=== PATIENT | male | born 1980 | race Caucasian/White ===

== ENCOUNTER 2016-12-08 19:33 | Emergency (ER) | payer BC ==
[2016-12-08 21:42] VITALS: BP 123/87
== END 2016-12-08 21:42 | disposition home or self-care (01) ==
LOC: ED 19:33
DX: S82.51XA Displaced fracture of medial malleolus of right tibia, initial encounter for closed fracture (principal); X50.1XXA Overexertion from prolonged static or awkward postures, initial encounter; Y93.54 Activity, bowling; Y92.89 Other specified places as the place of occurrence of the external cause; Y99.8 Other external cause status
CPT/HCPCS: J1885

== ENCOUNTER 2017-09-29 07:12 | Emergency (ER) | payer BC ==
[2017-09-29 10:08] LABS: BASOPHIL % 1.1 % (0-2); PLATELET COUNT 289 x10^3mcL (130-400); RED CELL DISTRIBUTION WIDTH 13.5 % (11.5-14.5)
[2017-09-29 10:19] LABS: CALCIUM 9.1 mg/dL (8.5-10.1); CARBON DIOXIDE 24.8 mmol/L (21-32); CHLORIDE SERUM 103 mmol/L (98-107); CREATININE SERUM 0.8 mg/dL (0.7-1.3); GFR1 > 60 mL/min; GLUCOSE SERUM 112 mg/dL (74-106); POTASSIUM SERUM 3.8 mmol/L (3.5-5.1); SODIUM SERUM 137 mmol/L (136-145); UA SPECIFIC GRAVITY 1.015 (1.005-1.035); microscopic required? YES; urine erythrocyte NEGATIVE (NEGATIVE)
[2017-09-29 10:23] LABS: ALKALINE PHOSPHATASE 64 U/L (46-116); ALT/SGPT 50 U/L (16-63); AMYLASE 53 U/L (25-115); AST/SGOT 29 U/L (15-37); LIPASE 90 IU/L (73-393)
[2017-09-29 10:25] LABS: TOTAL PROTEIN, SERUM 8.3 g/dL (6.4-8.2)
[2017-09-29 12:41] VITALS: BP 107/74
[2017-09-29 16:23] LABS: T3 TOTAL 1.06 ng/mL
[2017-09-29 16:27] LABS: MAGNESIUM 2.2 mg/dL (1.8-2.4); PHOSPHOROUS 3.5 mg/dL (2.5-4.9)
[2017-09-29 16:29] LABS: CHOLESTEROL/HDL RATIO 5.8
[2017-09-29 16:35] LABS: FREE T4 0.9 ng/dL (0.76-1.46); FREE THYROXINE INDEX 2.3 ug/dL (1.4-4.5); T4(THYROXINE) 7.8 ug/dL (4.7-13.3)
[2017-09-29 16:45] LABS: AMPHETAMINE QUAL UR NONE DETECTED (NEG <=1000)
== END 2017-09-29 12:41 | disposition home or self-care (01) ==
LOC: ED 07:12
PROVIDERS: Emergency Medicine; Family Medicine
DX: K57.32 Diverticulitis of large intestine without perforation or abscess without bleeding (principal); F12.90 Cannabis use, unspecified, uncomplicated
CPT/HCPCS: 83880; 84439; J1885; J2405; J7030; Q9967

== ENCOUNTER 2019-06-08 08:26 | Emergency (ER) | payer BC ==
[~2019-06-08] VITALS: Ht 172.7 cm; Wt 91.8 kg
[2019-06-08 08:45] VITALS: Ht 172.7 cm; Wt 91.8 kg
[2019-06-08 09:01] LABS: BASOPHIL % 0.1 % (0-2); PLATELET COUNT 279 x10^3mcL (130-400); RED CELL DISTRIBUTION WIDTH 13.8 % (11.5-14.5)
[2019-06-08 09:18] LABS: CALCIUM 8.3 mg/dL (8.5-10.1); CARBON DIOXIDE 26.6 mmol/L (21-32); CHLORIDE SERUM 107 mmol/L (98-107); CREATININE SERUM 0.9 mg/dL (0.7-1.3); GFR1 > 60 mL/min; GLUCOSE SERUM 148 mg/dL (74-106); POTASSIUM SERUM 4.3 mmol/L (3.5-5.1); SODIUM SERUM 142 mmol/L (136-145)
[2019-06-08 09:24] LABS: ALBUMIN 3.5 g/dL (3.4-5.0); ALKALINE PHOSPHATASE 65 U/L (46-116); ALT/SGPT 88 U/L (16-63); AMYLASE 51 U/L (25-115); AST/SGOT 41 U/L (15-37); BILIRUBIN TOTAL 0.3 mg/dL (0.20-1.00); LIPASE 79 IU/L (73-393); TOTAL PROTEIN, SERUM 7.3 g/dL (6.4-8.2)
[2019-06-08 11:40] VITALS: BP 124/69
== END 2019-06-08 11:40 | disposition home or self-care (01) ==
LOC: ED 08:26
PROVIDERS: Emergency Medicine
DX: K57.30 Diverticulosis of large intestine without perforation or abscess without bleeding (principal)
CPT/HCPCS: 36415; J1885